=== PATIENT | female | born 1940 | race Caucasian/White ===

== ENCOUNTER 2017-05-17 16:01 | Inpatient (IN) | payer MEDICARE ==
[~2017-05-17] VITALS: Ht 165.1 cm; Wt 80.4 kg
--- NOTE | ~2017-05-17 | CON ---
[place], [place] REPORT OF CONSULTATION NAME: CRISPIN BARILLAS UNIT #: [id number] ROOM: 512 DOCTOR: CHING MENDOZABIANCA BIRTHDATE: [birth year] DOS: 05/18/2017 HISTORY OF PRESENT ILLNESS: A 76-year-old patient who presented with a chief complaint of atypical chest pain; however, radiation of the pain to the shoulder, jaw, and back. This was associated with nausea sensation and severe dyspepsia. The patient had to be admitted for definitive evaluation. EKG concerns cardiologic evaluation. A panel of blood work at the beginning shows lactic acid 1.8. CBC differential, white blood cell 14, H and H of 14 and 45. ____ INR 1.0, comprehensive metabolic panel: BUN and creatinine 16 and 1.1. GFR of 48. Liver function test normal. C-reactive protein elevated slightly BNP 58. Troponin was negative. Repeated troponins again was every [address] scan of the chest was done, no acute process was identified. PAST MEDICAL HISTORY: Unremarkable. She is not on any medication. PAST SURGICAL HISTORY: Only gynecologic procedure with what appears to be possibly has been cervical dysplasia multi decades ago. However, no hysterectomy and no oophorectomy. SOCIAL HISTORY: Nonsmoker, nonalcohol consumer. FAMILY HISTORY: Noncontributory. ALLERGIES: To no known medications. MEDICATIONS: P.r.n. antacids. REVIEW OF SYSTEMS: HEAD, EARS, EYES, NOSE AND THROAT: Denies double vision, blurred vision. RESPIRATORY: Denies acute shortness of breath. CARDIOVASCULAR: No chest pain; however, as identified with associated dyspepsia radiation to shoulder and back and known large hiatal hernia. PHYSICAL EXAMINATION: VITAL SIGNS: Stable, nontoxic patient. HEAD, EARS, EYES, NOSE AND THROAT: Head normocephalic, nontraumatic. Mouth and buccal mucosa benign. NECK: Supple, no thyromegaly, no cervical lymphadenopathy. CHEST: Symmetric anatomy, equal expansion. No wheeze, no rhonchi. HEART: Normal sinus rhythm, no gallop, no murmur. ABDOMEN: Soft. No hepato-organomegaly. Bowel sounds present. No pulsatile mass. EXTREMITIES: No cyanosis, no pedal edema. NEUROLOGIC: Alert, oriented to time, place, person. LABORATORY DATA: Reviewed. Records reviewed. Data reviewed. IMPRESSION: Atypical chest pain, ruling out cardiac versus noncardiac pain secondary to gastroesophageal reflux. [place], [place] REPORT OF CONSULTATION NAME: CRISPIN BARILLAS UNIT #: [id number] ROOM: [facility] DOCTOR: CHING MENDOZA,BIANCA BIRTHDATE: [birth year] PLAN AND DISCUSSION: Awaiting a stress test tomorrow morning and if negative, then we will consider endoscopy otherwise we will follow as outpatient. At the present time, supportive management until tomorrow. Diet can be regular today. BIANCA FLOWER MD CM:CONSTR:REPORT OF CONSULTATION 1410 05/18/17 1510 interface
--- NOTE | ~2017-05-17 | O ---
[place], [place] OPERATIVE NOTE NAME: CRISPIN BARILLAS UNIT #: [id number] ROOM: 512 DOCTOR: BIANCA FLOWER MD BIRTHDATE: [birth year] DOS: 05/19/2017 GASTROENDOSCOPIC REPORT INDICATIONS: A 76-year-old patient who presented with chief complaint of epigastric abdominal pain, atypical chest pain, radiation of the pain to the back, to the shoulders, to the jaw. She underwent a stress test for cardiac clearance was given. PROCEDURE: Today's procedure part of investigation is panendoscopy plus biopsy. PREMEDICATION: Versed and Diprivan. SCOPE: Olympus forward-viewing gastroscope Q10 video. REPORT: After putting the patient in left lateral position and application of lubricant to the scope, the scope was introduced; thereafter, under direct visualization, advanced through the length of esophagus without difficulty. Esophagus, cervical, thoracic distal carefully examined. Hiatal hernia of which is large was noticed. Gastric chamber was practically has been divided to 2-part due to large hiatal hernia. Gastritis was noticed. Duodenal bulb, second and third part within normal limits. Antral biopsy obtained. The patient extubated, tolerated the procedure well. IMPRESSION: Gastritis, large hiatal hernia, status post biopsy. PLAN AND DISCUSSION: We are going to keep this patient on Protonix 40 mg 1 day, in addition, we are going to have antireflux measures with elevation of the head of the bed 6 inch all the time. Abstinence from solid food ingestion 3-4 hours prior to retiring and we are going to advise the patient to have Extra Strength ____ drink a teaspoon of Gaviscon Extra Strength 10-15 minutes prior to retiring at night. Meanwhile, she can use Gaviscon p.r.n. after meals should she experience dyspepsia and symptomatology that she was presented. Thank you very much indeed. [place], [place] OPERATIVE NOTE NAME: CRISPIN BARILLAS UNIT #: [id number] ROOM: 512 DOCTOR: BIANCA FLOWER MD BIRTHDATE: [birth year] BIANCA FLOWER MD CM:OPRECORD:OPERATIVE NOTE 1450 1511 BIANCA FLOWER MD 05/19/17 1511 interface
[2017-05-17 16:26] VITALS: BP 182/98
[2017-05-17 16:37] LABS: BASO % 0.3 % (0.0-1.0); EOS # 0.2 10*3/uL (0.0-0.4); EOS % 1.1 % (1.0-4.0); HEMATOCRIT 45.5 % (37.0-47.0); HEMOGLOBIN 14.5 g/dl (12.0-16.0); LYMPH # 1.2 10*3/uL (1.3-4.4); LYMPH % 8.6 % (27.0-41.0); MEAN CELL VOLUME 91.5 fl (81.0-99.0); MEAN CORPUSCULAR HGB 29.2 pg (27.0-31.0); MEAN CORPUSCULAR HGB CONC 31.9 g/dl (33.0-37.0); MEAN PLATELET VOLUME 10.1 fl (9.6-12.3); MONO # 1.3 10*3/uL (0.1-1.0); MONO % 9.1 % (3.0-9.0); NEUT # 11.5 10*3/uL (2.3-7.9); NEUT % 80.5 % (47.0-73.0); PLATELET COUNT AUTOMATED 318 10*3/uL (130-400); RED BLOOD COUNT 4.97 10*6/uL (4.10-5.10); RED CELL DISTRI WIDTH 14.6 % (0-14.5); WHITE BLOOD COUNT 14.2 10*3/uL (4.8-10.8)
[2017-05-17 16:46] LABS: ACT PARTIAL THROMBO TIME 26.1 SECONDS (20.8-31.5)
[2017-05-17 16:54] LABS: ALBUMIN 3.6 gm/dl (3.1-4.5); ALKALINE PHOSPHATASE 95 U/L (45-117); BUN 16 mg/dl (7-24); CHLORIDE 104 mmol/L (98-107); CREATININE 1.11 mg/dL (0.55-1.02); LIPASE 106 U/L (73-393); POTASSIUM 4.1 mmol/L (3.5-5.1); SGOT/AST 23 IU/L (3-35); SGPT/ALT 34 U/L (12-78); SODIUM 139 mmol/L (136-145); TOTAL PROTEIN 7.9 gm/dL (6.4-8.2); TROPONIN I < 0.015 ng/ml (<0.045)
[2017-05-17 19:22] VITALS: BP 165/85
[2017-05-17 19:40] VITALS: BP 126/61
[2017-05-17 20:45] VITALS: BP 135/36; BP 135/63
[2017-05-18] VITALS: BP 130/62
[2017-05-18 06:38] LABS: BASO # 0.1 10*3/uL (0.0-0.1); BASO % 0.5 % (0.0-1.0); EOS # 0.1 10*3/uL (0.0-0.4); EOS % 1.4 % (1.0-4.0); LYMPH # 2.1 10*3/uL (1.3-4.4); LYMPH % 20.2 % (27.0-41.0); MEAN CORPUSCULAR HGB 29.3 pg (27.0-31.0); MEAN CORPUSCULAR HGB CONC 32.2 g/dl (33.0-37.0); MEAN PLATELET VOLUME 10.3 fl (9.6-12.3); MONO # 1.3 10*3/uL (0.1-1.0); MONO % 12.7 % (3.0-9.0); NEUT # 6.7 10*3/uL (2.3-7.9); NEUT % 64.9 % (47.0-73.0); PLATELET COUNT AUTOMATED 259 10*3/uL (130-400); RED BLOOD COUNT 4.23 10*6/uL (4.10-5.10); RED CELL DISTRI WIDTH 14.7 % (0-14.5); WHITE BLOOD COUNT 10.3 10*3/uL (4.8-10.8)
[2017-05-18 06:39] LABS: ALBUMIN 2.8 gm/dl (3.1-4.5); ALKALINE PHOSPHATASE 68 U/L (45-117); BUN 12 mg/dl (7-24); CHLORIDE 107 mmol/L (98-107); CHOLESTEROL 150 mg/dL (<200); CREATININE 0.74 mg/dL (0.55-1.02); HDL CHOLESTEROL 58 mg/dl (40-60); LDL CHOLESTEROL 75 mg/dL (9-159); PHOSPHOROUS 2.9 mg/dL (2.5-4.9); POTASSIUM 3.7 mmol/L (3.5-5.1); SGOT/AST 13 IU/L (3-35); SGPT/ALT 21 U/L (12-78); SODIUM 140 mmol/L (136-145); TOTAL PROTEIN 6.3 gm/dL (6.4-8.2); TRIGLYCERIDES 84 mg/dl (<150); VLDL CHOLESTEROL 17 mg/dL (6-40)
[2017-05-18 06:45] LABS: FREE T4 0.99 ng/dl (0.76-1.46)
[2017-05-18 06:57] LABS: HEMATOCRIT 38.5 % (37.0-47.0); HEMOGLOBIN 12.4 g/dl (12.0-16.0)
[2017-05-18 07:04] LABS: ACT PARTIAL THROMBO TIME 29.5 SECONDS (20.8-31.5)
[2017-05-18 07:57] LABS: VITAMIN D, 25-HYDROXY 11.8 ng/mL (30-100)
[2017-05-18 08:00] VITALS: BP 148/67
[2017-05-18 12:00] VITALS: BP 154/76
[2017-05-18 16:21] VITALS: BP 155/77
[2017-05-18 20:00] VITALS: BP 162/90
[2017-05-19] VITALS (9 sets, daily range): BP systolic 130–186; BP diastolic 70–89
[2017-05-19] MEDS ORDERED: PROTONIX40 MG PO (16:44)
[2017-05-19] MEDS ORDERED: GAVISCON LIQUI355 ML PO (16:44)
== END 2017-05-19 18:08 | disposition home or self-care (01) | DRG 304 ==
LOC: ED 16:01 → 5E 20:12 → EDHOLD 20:12 → 5E 20:21
PROVIDERS: Emergency Medicine; Hospitalist
PROC: 3E073KZ Introduction of Other Diagnostic Substance into Coronary Artery, Percutaneous Approach (ICD-10-PCS; principal; 2017-05-19)
PROC: 4A02XM4 Measurement of Cardiac Total Activity, External Approach (ICD-10-PCS; principal; 2017-05-19)
PROC: 0DB68ZX Excision of Stomach, Via Natural or Artificial Opening Endoscopic, Diagnostic (ICD-10-PCS; principal; 2017-05-19)
DX: I16.1 Hypertensive emergency (principal); E43 Unspecified severe protein-calorie malnutrition; R65.10 Systemic inflammatory response syndrome (SIRS) of non-infectious origin without acute organ dysfunction; R07.89 Other chest pain; K29.70 Gastritis, unspecified, without bleeding; K21.9 Gastro-esophageal reflux disease without esophagitis; M47.812 Spondylosis without myelopathy or radiculopathy, cervical region; E55.9 Vitamin D deficiency, unspecified; E53.8 Deficiency of other specified B group vitamins; K44.9 Diaphragmatic hernia without obstruction or gangrene; R73.9 Hyperglycemia, unspecified; D72.810 Lymphocytopenia; Z82.49 Family history of ischemic heart disease and other diseases of the circulatory system; Z85.42 Personal history of malignant neoplasm of other parts of uterus; Z98.51 Tubal ligation status; Z82.3 Family history of stroke; Z68.29 Body mass index [BMI] 29.0-29.9, adult

== ENCOUNTER → 2020-01-02 | Outpatient (CLI) | payer MEDICARE, MEDICAID ==
[~2020-01-02] MED LIST: GAVISCON LIQUI355 ML PO; PROTONIX40 MG PO
== END | disposition home or self-care (01) ==
LOC: LAB 09:41 → RAD 10:00
DX: M81.0 Age-related osteoporosis without current pathological fracture (principal); K44.9 Diaphragmatic hernia without obstruction or gangrene; R03.0 Elevated blood-pressure reading, without diagnosis of hypertension; E55.9 Vitamin D deficiency, unspecified; Z78.0 Asymptomatic menopausal state; Z79.899 Other long term (current) drug therapy

== ENCOUNTER 2020-05-11 00:17 | Emergency (ER) | payer MEDICARE, MEDICAID ==
[~2020-05-11] VITALS: Ht 165.1 cm; Wt 81.6 kg
[2020-05-11 00:44] LABS: BASO % 0.2 % (0.0-1.0); EOS % 0.3 % (1.0-4.0); LYMPH # 0.5 10*3/uL (1.3-4.4); LYMPH % 3.4 % (27.0-41.0); MEAN CELL VOLUME 89.4 fl (81.0-99.0); MEAN CORPUSCULAR HGB 28.1 pg (27.0-31.0); MEAN CORPUSCULAR HGB CONC 31.4 g/dl (33.0-37.0); MEAN PLATELET VOLUME 9.9 fl (9.6-12.3); MONO # 1.2 10*3/uL (0.1-1.0); MONO % 8.1 % (3.0-9.0); NEUT # 13.5 10*3/uL (2.3-7.9); NEUT % 87.6 % (47.0-73.0); PLATELET COUNT AUTOMATED 322 10*3/uL (130-400); RED BLOOD COUNT 4.81 10*6/uL (4.10-5.10); RED CELL DISTRI WIDTH 15.8 % (0-14.5); WHITE BLOOD COUNT 15.4 10*3/uL (4.8-10.8)
[2020-05-11 00:59] LABS: ALBUMIN 3.3 gm/dl (3.1-4.5); ALKALINE PHOSPHATASE 250 U/L (45-117); BUN 20 mg/dl (7-24); CHLORIDE 106 mmol/L (98-107); CREATININE 0.91 mg/dL (0.55-1.02); LIPASE 86 U/L (73-393); POTASSIUM 3.6 mmol/L (3.5-5.1); SGOT/AST 327 IU/L (3-35); SGPT/ALT 317 U/L (12-78); SODIUM 138 mmol/L (136-145); TOTAL PROTEIN 7.8 gm/dL (6.4-8.2); TROPONIN I < 0.015 ng/ml (<0.045)
[2020-05-11] MEDS ORDERED: ZOFRAN4 MG PO (01:14)
[2020-05-11] MEDS ORDERED: OMEPRAZOLE40 MG PO (01:14)
== END 2020-05-11 02:45 | disposition home or self-care (01) ==
LOC: ED 00:17
PROVIDERS: Internal Medicine
DX: B34.9 Viral infection, unspecified (principal); R79.89 Other specified abnormal findings of blood chemistry; D72.829 Elevated white blood cell count, unspecified; Z20.828 Contact with and (suspected) exposure to other viral communicable diseases

== ENCOUNTER 2021-05-12 11:38 | Inpatient (IN) | payer MEDICARE, MEDICAID ==
[~2021-05-12] VITALS: Ht 165.1 cm; Wt 78.0 kg
[~2021-05-12 11:38] MED LIST changes: +OMEPRAZOLE40 MG PO; +ZOFRAN4 MG PO
[2021-05-12 11:45] VITALS: BP 146/67
[2021-05-12 12:35] LABS: BASO % 0.1 % (0.0-1.0); HEMATOCRIT 44.4 % (37.0-47.0); LYMPH # 0.5 10*3/uL (1.3-4.4); LYMPH % 4.9 % (27.0-41.0); MEAN CELL VOLUME 91.4 fl (81.0-99.0); MEAN CORPUSCULAR HGB 28.6 pg (27.0-31.0); MEAN CORPUSCULAR HGB CONC 31.3 g/dl (33.0-37.0); MONO # 0.5 10*3/uL (0.1-1.0); MONO % 5.6 % (3.0-9.0); NEUT # 8.4 10*3/uL (2.3-7.9); NEUT % 88.9 % (47.0-73.0); PLATELET COUNT AUTOMATED 179 10*3/uL (130-400); RED BLOOD COUNT 4.86 10*6/uL (4.10-5.10); RED CELL DISTRI WIDTH 14.6 % (0-14.5); WHITE BLOOD COUNT 9.5 10*3/uL (4.8-10.8)
[2021-05-12 12:51] LABS: ALBUMIN 2.7 gm/dl (3.1-4.5); CREATININE 1.74 mg/dL (0.55-1.02); POTASSIUM 3.9 mmol/L (3.5-5.1); TOTAL PROTEIN 7.3 gm/dL (6.4-8.2)
[2021-05-12 14:52] LABS: BILIRUBIN Negative (Negative); BLOOD 1+ (Negative); CLARITY Turbid (Clear); COLOR Yellow (Yellow); GLUCOSE Negative (Negative); KETONE Trace (Negative); LEUKO ESTERASE 1+ (Negative); NITRITE Positive (Negative); UROBILINOGEN 0.2 E.U./dl (0.0-1.0)
[2021-05-12 15:05] LABS: BACTERIA 4+; MUCOUS 2+
[2021-05-12 16:00] VITALS: BP 142/72
[2021-05-12 18:23] VITALS: BP 110/46
[2021-05-12 20:14] VITALS: BP 107/47
[2021-05-12 22:50] VITALS: BP 140/94
[2021-05-13 06:13] LABS: ALBUMIN 2.3 gm/dl (3.1-4.5); ALKALINE PHOSPHATASE 55 U/L (45-117); BUN 25 mg/dl (7-24); CHLORIDE 111 mmol/L (98-107); CREATININE 0.97 mg/dL (0.55-1.02); FREE T4 1.05 ng/dl (0.76-1.46); LDH 434 U/L (84-246); POTASSIUM 4.4 mmol/L (3.5-5.1); SGOT/AST 43 IU/L (3-35); SGPT/ALT 37 U/L (12-78); SODIUM 140 mmol/L (136-145); TOTAL PROTEIN 7.1 gm/dL (6.4-8.2)
[2021-05-13 06:19] LABS: BASO % 0.1 % (0.0-1.0); HEMATOCRIT 44.4 % (37.0-47.0); LYMPH # 0.5 10*3/uL (1.3-4.4); LYMPH % 5.4 % (27.0-41.0); MEAN CORPUSCULAR HGB 28.7 pg (27.0-31.0); MEAN CORPUSCULAR HGB CONC 31.5 g/dl (33.0-37.0); MEAN PLATELET VOLUME 10.5 fl (9.6-12.3); MONO # 0.5 10*3/uL (0.1-1.0); MONO % 5.7 % (3.0-9.0); NEUT # 8.4 10*3/uL (2.3-7.9); NEUT % 88.1 % (47.0-73.0); PLATELET COUNT AUTOMATED 205 10*3/uL (130-400); RED BLOOD COUNT 4.88 10*6/uL (4.10-5.10); RED CELL DISTRI WIDTH 14.6 % (0-14.5); WHITE BLOOD COUNT 9.5 10*3/uL (4.8-10.8)
[2021-05-13 08:00] VITALS: BP 153/89
[2021-05-13 12:00] VITALS: BP 143/70
[2021-05-13 15:47] VITALS: BP 142/72
[2021-05-13 20:00] VITALS: BP 148/84
[2021-05-14] VITALS: BP 150/79
[2021-05-14 06:15] LABS: CHLORIDE 112 mmol/L (98-107); POTASSIUM 4.6 mmol/L (3.5-5.1); SODIUM 140 mmol/L (136-145)
[2021-05-14 06:22] LABS: BASO % 0.2 % (0.0-1.0); LYMPH # 0.6 10*3/uL (1.3-4.4); LYMPH % 5.3 % (27.0-41.0); MEAN CELL VOLUME 91.1 fl (81.0-99.0); MEAN CORPUSCULAR HGB 28.3 pg (27.0-31.0); MEAN CORPUSCULAR HGB CONC 31.1 g/dl (33.0-37.0); MEAN PLATELET VOLUME 10.4 fl (9.6-12.3); MONO # 0.6 10*3/uL (0.1-1.0); NEUT # 9.3 10*3/uL (2.3-7.9); PLATELET COUNT AUTOMATED 261 10*3/uL (130-400); RED BLOOD COUNT 5.05 10*6/uL (4.10-5.10); RED CELL DISTRI WIDTH 14.6 % (0-14.5); WHITE BLOOD COUNT 10.6 10*3/uL (4.8-10.8)
[2021-05-14 06:37] LABS: ALBUMIN 2.4 gm/dl (3.1-4.5); ALKALINE PHOSPHATASE 59 U/L (45-117); BUN 24 mg/dl (7-24); CREATININE 0.85 mg/dL (0.55-1.02); SGOT/AST 41 IU/L (3-35); SGPT/ALT 37 U/L (12-78)
[2021-05-14 08:00] VITALS: BP 143/83
[2021-05-14 12:00] VITALS: BP 140/72
[2021-05-14 16:00] VITALS: BP 144/73
[2021-05-14 20:00] VITALS: BP 150/85
[2021-05-15] VITALS: BP 153/87
[2021-05-15 06:28] LABS: CHLORIDE 112 mmol/L (98-107); POTASSIUM 4.5 mmol/L (3.5-5.1); SODIUM 141 mmol/L (136-145)
[2021-05-15 06:31] LABS: BASO % 0.2 % (0.0-1.0); HEMATOCRIT 43.3 % (37.0-47.0); LYMPH # 0.6 10*3/uL (1.3-4.4); LYMPH % 5.5 % (27.0-41.0); MEAN CELL VOLUME 91.9 fl (81.0-99.0); MEAN CORPUSCULAR HGB 29.5 pg (27.0-31.0); MEAN CORPUSCULAR HGB CONC 32.1 g/dl (33.0-37.0); MEAN PLATELET VOLUME 10.2 fl (9.6-12.3); MONO # 0.7 10*3/uL (0.1-1.0); MONO % 5.8 % (3.0-9.0); NEUT % 88.1 % (47.0-73.0); PLATELET COUNT AUTOMATED 294 10*3/uL (130-400); RED BLOOD COUNT 4.71 10*6/uL (4.10-5.10); RED CELL DISTRI WIDTH 14.6 % (0-14.5); WHITE BLOOD COUNT 11.3 10*3/uL (4.8-10.8)
[2021-05-15 06:44] LABS: ALBUMIN 2.2 gm/dl (3.1-4.5); ALKALINE PHOSPHATASE 59 U/L (45-117); BUN 31 mg/dl (7-24); CREATININE 0.87 mg/dL (0.55-1.02); SGOT/AST 28 IU/L (3-35); SGPT/ALT 31 U/L (12-78); TOTAL PROTEIN 6.6 gm/dL (6.4-8.2)
[2021-05-15 08:00] VITALS: BP 141/76
[2021-05-15 10:22] LABS: ABG BASE EXCESS -3.7 mmol/L (-2.0-2.0); ARTERIAL BLOOD GAS PH 7.381 (7.35-7.45); ARTERIAL BLOOD GAS PO2 97.3 (80-90)
[2021-05-15 16:00] VITALS: BP 153/86
[2021-05-15 20:00] VITALS: BP 153/92
[2021-05-16] VITALS: BP 130/66
[2021-05-16 06:14] LABS: ALBUMIN 2.5 gm/dl (3.1-4.5); ALKALINE PHOSPHATASE 64 U/L (45-117); BUN 32 mg/dl (7-24); CHLORIDE 109 mmol/L (98-107); CREATININE 0.96 mg/dL (0.55-1.02); POTASSIUM 4.6 mmol/L (3.5-5.1); SGOT/AST 27 IU/L (3-35); SGPT/ALT 38 U/L (12-78); SODIUM 141 mmol/L (136-145); TOTAL PROTEIN 7.2 gm/dL (6.4-8.2)
[2021-05-16 06:29] LABS: BASO % 0.2 % (0.0-1.0); HEMATOCRIT 47.4 % (37.0-47.0); LYMPH # 0.7 10*3/uL (1.3-4.4); LYMPH % 5.6 % (27.0-41.0); MEAN CELL VOLUME 92.2 fl (81.0-99.0); MEAN CORPUSCULAR HGB 28.6 pg (27.0-31.0); MEAN PLATELET VOLUME 10.4 fl (9.6-12.3); MONO % 8.5 % (3.0-9.0); NEUT # 10.1 10*3/uL (2.3-7.9); NEUT % 84.5 % (47.0-73.0); PLATELET COUNT AUTOMATED 337 10*3/uL (130-400); RED BLOOD COUNT 5.14 10*6/uL (4.10-5.10); RED CELL DISTRI WIDTH 14.5 % (0-14.5); WHITE BLOOD COUNT 11.9 10*3/uL (4.8-10.8)
[2021-05-16 08:00] VITALS: BP 141/79
[2021-05-16 12:00] VITALS: BP 151/86
[2021-05-16 16:00] VITALS: BP 144/76
[2021-05-16 20:00] VITALS: BP 159/91
[2021-05-17] VITALS: BP 134/72
[2021-05-17 06:14] LABS: ALBUMIN 2.5 gm/dl (3.1-4.5); BUN 32 mg/dl (7-24); CHLORIDE 105 mmol/L (98-107); POTASSIUM 4.8 mmol/L (3.5-5.1); SODIUM 138 mmol/L (136-145)
[2021-05-17 06:20] LABS: ALKALINE PHOSPHATASE 65 U/L (45-117); CREATININE 0.83 mg/dL (0.55-1.02); SGOT/AST 26 IU/L (3-35); SGPT/ALT 39 U/L (12-78); TOTAL PROTEIN 7.3 gm/dL (6.4-8.2)
[2021-05-17 06:31] LABS: BASO # 0.1 10*3/uL (0.0-0.1); BASO % 0.4 % (0.0-1.0); HEMATOCRIT 48.7 % (37.0-47.0); LYMPH # 0.7 10*3/uL (1.3-4.4); LYMPH % 6.2 % (27.0-41.0); MEAN CELL VOLUME 92.1 fl (81.0-99.0); MEAN CORPUSCULAR HGB 28.4 pg (27.0-31.0); MEAN CORPUSCULAR HGB CONC 30.8 g/dl (33.0-37.0); MEAN PLATELET VOLUME 10.4 fl (9.6-12.3); MONO # 1.1 10*3/uL (0.1-1.0); MONO % 9.6 % (3.0-9.0); NEUT # 9.4 10*3/uL (2.3-7.9); NEUT % 81.9 % (47.0-73.0); PLATELET COUNT AUTOMATED 320 10*3/uL (130-400); RED BLOOD COUNT 5.29 10*6/uL (4.10-5.10); RED CELL DISTRI WIDTH 14.4 % (0-14.5); WHITE BLOOD COUNT 11.5 10*3/uL (4.8-10.8)
[2021-05-17 08:16] VITALS: BP 158/98
[2021-05-17 12:00] VITALS: BP 138/83
[2021-05-17 16:00] VITALS: BP 143/85
[2021-05-17 20:00] VITALS: BP 160/70
[2021-05-18] VITALS: BP 122/70
[2021-05-18 06:17] LABS: BASO # 0.1 10*3/uL (0.0-0.1); BASO % 0.5 % (0.0-1.0); EOS % 0.1 % (1.0-4.0); HEMATOCRIT 44.7 % (37.0-47.0); LYMPH # 0.8 10*3/uL (1.3-4.4); LYMPH % 6.2 % (27.0-41.0); MEAN CELL VOLUME 89.6 fl (81.0-99.0); MEAN CORPUSCULAR HGB 28.7 pg (27.0-31.0); MEAN PLATELET VOLUME 10.1 fl (9.6-12.3); MONO # 1.1 10*3/uL (0.1-1.0); MONO % 9.4 % (3.0-9.0); NEUT # 9.8 10*3/uL (2.3-7.9); NEUT % 81.4 % (47.0-73.0); PLATELET COUNT AUTOMATED 331 10*3/uL (130-400); RED BLOOD COUNT 4.99 10*6/uL (4.10-5.10); WHITE BLOOD COUNT 12.1 10*3/uL (4.8-10.8)
[2021-05-18 06:31] LABS: ALBUMIN 2.2 gm/dl (3.1-4.5); BUN 32 mg/dl (7-24); CHLORIDE 103 mmol/L (98-107); POTASSIUM 4.6 mmol/L (3.5-5.1); SODIUM 138 mmol/L (136-145)
[2021-05-18 06:35] LABS: ALKALINE PHOSPHATASE 62 U/L (45-117); CREATININE 0.77 mg/dL (0.55-1.02); SGOT/AST 20 IU/L (3-35); SGPT/ALT 33 U/L (12-78); TOTAL PROTEIN 6.8 gm/dL (6.4-8.2)
[2021-05-18 08:00] VITALS: BP 124/74
[2021-05-18 12:00] VITALS: BP 111/84
[2021-05-18 16:00] VITALS: BP 120/58
[2021-05-18 20:00] VITALS: BP 123/68
[2021-05-19] VITALS: BP 151/85
[2021-05-19 06:00] LABS: HEMATOCRIT 44.3 % (37.0-47.0); MEAN CELL VOLUME 91.5 fl (81.0-99.0); MEAN CORPUSCULAR HGB 28.7 pg (27.0-31.0); MEAN CORPUSCULAR HGB CONC 31.4 g/dl (33.0-37.0); MEAN PLATELET VOLUME 9.9 fl (9.6-12.3); PLATELET COUNT AUTOMATED 326 10*3/uL (130-400); RED BLOOD COUNT 4.84 10*6/uL (4.10-5.10); RED CELL DISTRI WIDTH 14.1 % (0-14.5); WHITE BLOOD COUNT 12.8 10*3/uL (4.8-10.8)
[2021-05-19 06:04] LABS: BUN 31 mg/dl (7-24); CHLORIDE 104 mmol/L (98-107); CREATININE 0.96 mg/dL (0.55-1.02); POTASSIUM 4.9 mmol/L (3.5-5.1); SODIUM 139 mmol/L (136-145)
[2021-05-19 06:32] LABS: TOTAL CELLS COUNTED 100 #CELLS
[2021-05-19 06:33] LABS: BURR CELLS FEW; PLATELET SUFFICIENCY NORMAL (NORMAL); VACUOLATION OF NEUTROPHILS SLIGHT
[2021-05-19 08:00] VITALS: BP 115/63
[2021-05-19 12:00] VITALS: BP 124/74
[2021-05-19 16:00] VITALS: BP 137/67
[2021-05-19 20:00] VITALS: BP 133/78
[2021-05-20] VITALS: BP 163/82
[2021-05-20 00:53] VITALS: BP 146/80
[2021-05-20 06:28] LABS: HEMATOCRIT 45.5 % (37.0-47.0); MEAN CELL VOLUME 92.1 fl (81.0-99.0); MEAN CORPUSCULAR HGB 28.9 pg (27.0-31.0); MEAN CORPUSCULAR HGB CONC 31.4 g/dl (33.0-37.0); MEAN PLATELET VOLUME 9.9 fl (9.6-12.3); PLATELET COUNT AUTOMATED 370 10*3/uL (130-400); RED BLOOD COUNT 4.94 10*6/uL (4.10-5.10); RED CELL DISTRI WIDTH 14.1 % (0-14.5); WHITE BLOOD COUNT 14.1 10*3/uL (4.8-10.8)
[2021-05-20 06:55] LABS: BUN 26 mg/dl (7-24); CREATININE 0.78 mg/dL (0.55-1.02)
[2021-05-20 07:46] LABS: CHLORIDE 105 mmol/L (98-107); POTASSIUM 4.8 mmol/L (3.5-5.1); SODIUM 137 mmol/L (136-145)
[2021-05-20 08:00] VITALS: BP 121/71
[2021-05-20 08:05] LABS: TOTAL CELLS COUNTED 100 #CELLS
[2021-05-20 08:06] LABS: BURR CELLS FEW; PLATELET SUFFICIENCY NORMAL (NORMAL); POLYCHROMASIA SLIGHT
[2021-05-20 12:00] VITALS: BP 115/74
[2021-05-20 16:00] VITALS: BP 137/76
[2021-05-20 20:00] VITALS: BP 136/69
[2021-05-21] VITALS: BP 130/57
[2021-05-21 06:17] LABS: HEMATOCRIT 45.6 % (37.0-47.0); MEAN CELL VOLUME 90.5 fl (81.0-99.0); MEAN CORPUSCULAR HGB 28.6 pg (27.0-31.0); MEAN CORPUSCULAR HGB CONC 31.6 g/dl (33.0-37.0); MEAN PLATELET VOLUME 10.4 fl (9.6-12.3); PLATELET COUNT AUTOMATED 365 10*3/uL (130-400); RED BLOOD COUNT 5.04 10*6/uL (4.10-5.10); RED CELL DISTRI WIDTH 14.4 % (0-14.5); WHITE BLOOD COUNT 13.7 10*3/uL (4.8-10.8)
[2021-05-21 06:43] LABS: BUN 26 mg/dl (7-24); CHLORIDE 104 mmol/L (98-107); CREATININE 0.86 mg/dL (0.55-1.02); POTASSIUM 4.6 mmol/L (3.5-5.1); SODIUM 135 mmol/L (136-145)
[2021-05-21 08:00] VITALS: BP 133/68
[2021-05-21 08:03] LABS: TOTAL CELLS COUNTED 100 #CELLS
[2021-05-21 08:04] LABS: PLATELET SUFFICIENCY NORMAL (NORMAL); POLYCHROMASIA SLIGHT
[2021-05-21 12:00] VITALS: BP 125/70
[2021-05-21 16:00] VITALS: BP 123/65
[2021-05-21 20:00] VITALS: BP 150/81
[2021-05-22] VITALS: BP 145/69
[2021-05-22 06:37] LABS: ALBUMIN 2.5 gm/dl (3.1-4.5); BUN 27 mg/dl (7-24); CHLORIDE 101 mmol/L (98-107); CREATININE 0.81 mg/dL (0.55-1.02); POTASSIUM 4.4 mmol/L (3.5-5.1); SGOT/AST 14 IU/L (3-35); SGPT/ALT 47 U/L (12-78); SODIUM 135 mmol/L (136-145); TOTAL PROTEIN 6.8 gm/dL (6.4-8.2)
[2021-05-22 06:39] LABS: ALKALINE PHOSPHATASE 63 U/L (45-117)
[2021-05-22 06:43] LABS: HEMATOCRIT 44.8 % (37.0-47.0); MEAN CELL VOLUME 89.8 fl (81.0-99.0); MEAN CORPUSCULAR HGB 28.7 pg (27.0-31.0); MEAN CORPUSCULAR HGB CONC 31.9 g/dl (33.0-37.0); MEAN PLATELET VOLUME 9.9 fl (9.6-12.3); PLATELET COUNT AUTOMATED 390 10*3/uL (130-400); RED BLOOD COUNT 4.99 10*6/uL (4.10-5.10); RED CELL DISTRI WIDTH 14.3 % (0-14.5); WHITE BLOOD COUNT 10.1 10*3/uL (4.8-10.8)
[2021-05-22 07:53] LABS: PLATELET SUFFICIENCY NORMAL (NORMAL); POLYCHROMASIA SLIGHT; TOTAL CELLS COUNTED 100 #CELLS
[2021-05-22 08:00] VITALS: BP 124/69
[2021-05-22 12:00] VITALS: BP 116/66
[2021-05-22] MEDS ORDERED: MUCUS RELIEF600 MG PO (13:09)
== END 2021-05-22 16:45 | disposition home health service (06) | DRG 871 ==
LOC: ED 11:38 → EDHOLD 13:45 → 4E 13:45
PROVIDERS: Internal Medicine; Registered Nurse; Social Worker Clinical; Student in an Organized Health Care Education/Training Program; ADMIT Internal Medicine; ATTEND Internal Medicine
PROC: 5A0935A Assistance with Respiratory Ventilation, Less than 24 Consecutive Hours, High Flow/Velocity Cannula (ICD-10-PCS; 2021-05-12)
PROC: 5A09357 Assistance with Respiratory Ventilation, Less than 24 Consecutive Hours, Continuous Positive Airway Pressure (ICD-10-PCS; 2021-05-12)
PROC: XW033E5 Introduction of Remdesivir Anti-infective into Peripheral Vein, Percutaneous Approach, New Technology Group 5 (ICD-10-PCS; principal; 2021-05-13)
PROC: 5A0935A Assistance with Respiratory Ventilation, Less than 24 Consecutive Hours, High Flow/Velocity Cannula (ICD-10-PCS; 2021-05-13)
PROC: 5A09357 Assistance with Respiratory Ventilation, Less than 24 Consecutive Hours, Continuous Positive Airway Pressure (ICD-10-PCS; 2021-05-13)
PROC: 5A0935A Assistance with Respiratory Ventilation, Less than 24 Consecutive Hours, High Flow/Velocity Cannula (ICD-10-PCS; 2021-05-14)
PROC: 5A09357 Assistance with Respiratory Ventilation, Less than 24 Consecutive Hours, Continuous Positive Airway Pressure (ICD-10-PCS; 2021-05-14)
PROC: 5A09357 Assistance with Respiratory Ventilation, Less than 24 Consecutive Hours, Continuous Positive Airway Pressure (ICD-10-PCS; 2021-05-15)
PROC: 5A0935A Assistance with Respiratory Ventilation, Less than 24 Consecutive Hours, High Flow/Velocity Cannula (ICD-10-PCS; 2021-05-18)
PROC: 5A09357 Assistance with Respiratory Ventilation, Less than 24 Consecutive Hours, Continuous Positive Airway Pressure (ICD-10-PCS; 2021-05-18)
PROC: 5A0935A Assistance with Respiratory Ventilation, Less than 24 Consecutive Hours, High Flow/Velocity Cannula (ICD-10-PCS; 2021-05-19)
PROC: 5A09357 Assistance with Respiratory Ventilation, Less than 24 Consecutive Hours, Continuous Positive Airway Pressure (ICD-10-PCS; 2021-05-19)
PROC: 5A0945A Assistance with Respiratory Ventilation, 24-96 Consecutive Hours, High Flow/Velocity Cannula (ICD-10-PCS; 2021-05-20)
PROC: 5A09357 Assistance with Respiratory Ventilation, Less than 24 Consecutive Hours, Continuous Positive Airway Pressure (ICD-10-PCS; 2021-05-20)
PROC: 5A09357 Assistance with Respiratory Ventilation, Less than 24 Consecutive Hours, Continuous Positive Airway Pressure (ICD-10-PCS; 2021-05-21)
PROC: 5A0935A Assistance with Respiratory Ventilation, Less than 24 Consecutive Hours, High Flow/Velocity Cannula (ICD-10-PCS; 2021-05-22)
DX: A41.9 Sepsis, unspecified organism (principal); U07.1 COVID-19; J12.82 Pneumonia due to coronavirus disease 2019; J96.01 Acute respiratory failure with hypoxia; N17.0 Acute kidney failure with tubular necrosis; E43 Unspecified severe protein-calorie malnutrition; N30.00 Acute cystitis without hematuria; J06.9 Acute upper respiratory infection, unspecified; E87.8 Other disorders of electrolyte and fluid balance, not elsewhere classified; R73.9 Hyperglycemia, unspecified; R65.20 Severe sepsis without septic shock; E66.9 Obesity, unspecified; E55.9 Vitamin D deficiency, unspecified; K21.9 Gastro-esophageal reflux disease without esophagitis; E53.8 Deficiency of other specified B group vitamins; Z88.8 Allergy status to other drugs, medicaments and biological substances; Z82.49 Family history of ischemic heart disease and other diseases of the circulatory system; Z82.3 Family history of stroke; Z79.899 Other long term (current) drug therapy